=== PATIENT | female | born 1980 | race Caucasian/White ===

== ENCOUNTER → 2017-05-25 | Outpatient (CLI) | payer OTHER ==
[~2017-05-25] MED LIST: ACET325 PO; ALBU90OI INH; Amoxicillin500 M1 PO; BCP'S; BUSP10 PO; CEPH500 PO; CIPR500 PO; CODACE30 PO; DEXT30SU PO; DIPH50 PO; Esgic Tablet1 EACH PO; GABA400 PO; HEARTBURN RELI150 M1 PO; IBUP800 PO; LOPE2C PO; ONDA4ODT MM; OXYACE5T PO; PHENA200 PO; PROM25 PO; Prilosec Otc20 MG PO; RXPHEN200 PO; TRAM50 PO; Valium5 MG PO; Verotin-Gr Cap1 EACH PO
== END | disposition home or self-care (01) ==
LOC: LAB EV 12:43
DX: N39.0 Urinary tract infection, site not specified (principal)
CPT/HCPCS: 87077; 87086; 87186

== ENCOUNTER 2017-06-06 12:48 | Emergency (ER) | payer OTHER ==
[~2017-06-06] VITALS: Ht 162.6 cm; Wt 61.2 kg
[~2017-06-06 12:48] MED LIST changes: -Esgic Tablet1 EACH PO; -GABA400 PO; -ONDA4ODT MM
[2017-06-06] MEDS ORDERED: GABA400 PO (13:56)
[2017-06-06] MEDS ORDERED: Esgic Tablet1 EACH PO (15:13)
[2017-06-06] MEDS ORDERED: ONDA4ODT MM (15:13)
== END 2017-06-06 15:18 | disposition home or self-care (01) ==
LOC: ER 12:48
DX: R51 Headache (principal); F17.210 Nicotine dependence, cigarettes, uncomplicated; Z88.2 Allergy status to sulfonamides; Z79.899 Other long term (current) drug therapy
CPT/HCPCS: 96372; 99283; J0780; J1200; J1885

== ENCOUNTER 2018-10-10 01:16 | Emergency (ER) | payer OTHER ==
[~2018-10-10] VITALS: Ht 165.1 cm; Wt 56.7 kg
[~2018-10-10 01:16] MED LIST changes: +Esgic Tablet1 EACH PO; +GABA400 PO; +ONDA4ODT MM
[2018-10-10] MEDS ORDERED: Cleocin HCl150 MG PO (01:47)
== END 2018-10-10 02:08 | disposition home or self-care (01) ==
LOC: ER 01:16
DX: K02.9 Dental caries, unspecified (principal); K03.81 Cracked tooth; Z88.2 Allergy status to sulfonamides; Z79.899 Other long term (current) drug therapy; F17.210 Nicotine dependence, cigarettes, uncomplicated
CPT/HCPCS: 96372; 99282-25; J1885

== ENCOUNTER 2018-11-19 17:26 | Emergency (ER) | payer OTHER ==
[~2018-11-19] VITALS: Ht 162.6 cm; Wt 54.4 kg
[~2018-11-19 17:26] MED LIST changes: +Cleocin HCl150 MG PO
== END 2018-11-19 19:56 | disposition left against medical advice (07) ==
LOC: ER 17:26
DX: M54.5 Low back pain (principal); Z53.20 Procedure and treatment not carried out because of patient's decision for unspecified reasons
CPT/HCPCS: 99282

== ENCOUNTER 2018-11-26 13:44 | Emergency (ER) | payer OTHER ==
[~2018-11-26] VITALS: Ht 162.6 cm; Wt 59.0 kg
[2018-11-26] MEDS ORDERED: Mupirocin22 GM TOP (15:34)
[2018-11-26] MEDS ORDERED: NAPR550 PO (15:34)
[2018-11-26] MEDS ORDERED: Robaxin-750750 MG PO (15:34)
== END 2018-11-26 15:40 | disposition home or self-care (01) ==
LOC: ER 13:44
DX: S39.012A Strain of muscle, fascia and tendon of lower back, initial encounter (principal); M62.838 Other muscle spasm; W11.XXXA Fall on and from ladder, initial encounter; Z88.2 Allergy status to sulfonamides; Z79.899 Other long term (current) drug therapy; F17.210 Nicotine dependence, cigarettes, uncomplicated
CPT/HCPCS: 72070; 72100; 96372; 99283-25; A9270-GY; J1885

== ENCOUNTER 2019-06-23 19:49 | Emergency (ER) | payer OTHER ==
[~2019-06-23] VITALS: Ht 162.6 cm; Wt 55.3 kg
[~2019-06-23 19:49] MED LIST changes: +Mupirocin22 GM TOP; +NAPR550 PO; +Robaxin-750750 MG PO
[2019-06-23 20:37] LABS: BASOPHILS ABSOLUTE AUTO 0.04 K/mm3 (0.00-0.23); BASOPHILS PERCENT AUTO 0 % (0-2); EOSINOPHILS ABSOLUTE AUTO 0.04 K/mm3 (0.00-0.68); EOSINOPHILS PERCENT AUTO 0 % (0-6); Hematocrit 37.1 % (33.0-51.0); Hemoglobin 12.1 g/dL (11.5-16.0); IMMATURE GRAN ABSOLUTE AUTO 0.04 K/mm3 (0.00-0.10); IMMATURE GRAN PERCENT AUTO 0 % (0-1); LYMPHOCYTES ABSOLUTE AUTO 0.85 K/mm3 (0.84-5.20); LYMPHOCYTES PERCENT AUTO 6 % (21-46); MONOCYTES ABSOLUTE AUTO 0.57 K/mm3 (0.16-1.47); MONOCYTES PERCENT AUTO 4 % (4-13); Mean Corpuscular HGB 28.5 pg (26.0-34.0); Mean Corpuscular HGB Conc 32.6 g/dL (31.5-36.5); Mean Corpuscular Volume 88 fL (80-100); NEUTROPHILS ABSOLUTE AUTO 12.17 K/mm3 (1.96-9.15); NEUTROPHILS PERCENT AUTO 89 % (41-73); Platelet Count 253 K/mm3 (150-400); RDW Coefficient Variation 12.2 % (11.7-14.2); RDW Standard Deviation 39.3 fL (35.1-46.3); Red Blood Cell Count 4.24 M/mm3 (3.80-5.20); White Blood Cell Count 13.71 K/mm3 (4.00-11.30)
[2019-06-23 20:57] LABS: Alanine Aminotransfer (ALT/SGP 15 U/L (12-78); Albumin, Blood 3.7 g/dL (3.4-5.0); Albumin/Globulin Ratio 1.1 (0.8-1.8); Alk Phos 67 U/L (50-136); Anion Gap 5 mmol/L (6-16); Aspartate Aminotrans (AST/SGOT 15 U/L (12-37); Bilirubin, Total 0.4 mg/dL (0.1-1.0); Blood Urea Nitrogen 11 mg/dL (8-24); CO2, Blood 26 mmol/L (21-32); Calcium, Blood 8.3 mg/dL (8.5-10.1); Chloride, Blood 105 mmol/L (98-108); Creatinine, Blood 0.78 mg/dL (0.40-1.00); Globulin, Blood 3.3 g/dL (2.2-4.0); Glomerular Filtration Rate >60 (60-); Glucose, Blood 88 mg/dL (70-99); Potassium, Blood 3.7 mmol/L (3.5-5.5); Sodium, Blood 136 mmol/L (136-145); Troponin I <0.015 ng/mL (0.000-0.040)
[2019-06-23 21:15] LABS: Source, Urine Voided
[2019-06-23 21:18] LABS: Bilirubin, Urine Neg (Neg); Blood, Urine 4+ (Neg); Glucose Qualitative, Urine Neg (Neg); Ketones, Urine Neg (Neg); Leukocyte Esterase, Urine 3+ (Neg); Nitrite, Urine Pos (Neg); Protein, Urine Neg (Neg); Urobilinogen, Urine NORM (Normal)
[2019-06-23 21:24] LABS: Appearance, Urine Clear (Clear); Color, Urine Yellow (P-Yellow)
[2019-06-23 21:25] LABS: Red Blood Cells, Urine 0-2 /hpf (0-2); Squamous Epithelial Cells Mod /hpf (Few)
[2019-06-23 21:26] LABS: Bacteria Many /hpf
[2019-06-23] MEDS ORDERED: IBUP600 PO (21:32)
[2019-06-23] MEDS ORDERED: CEPH500 PO (21:32)
== END 2019-06-23 22:42 | disposition home or self-care (01) ==
LOC: ER 19:49
PROVIDERS: Emergency Medicine
DX: R07.89 Other chest pain (principal); F41.9 Anxiety disorder, unspecified; F17.210 Nicotine dependence, cigarettes, uncomplicated; Z88.2 Allergy status to sulfonamides; Z79.899 Other long term (current) drug therapy
CPT/HCPCS: 36415; 71045; 80053; 81001; 84484; 85025; 87077; 87086; 87147; 87186; 93005; 93010; 99285-25; A9270-GY

== ENCOUNTER 2019-07-17 14:24 | Emergency (ER) | payer OTHER ==
[~2019-07-17] VITALS: Ht 162.6 cm; Wt 54.4 kg
[~2019-07-17 14:24] MED LIST changes: +IBUP600 PO
[2019-07-17 15:32] LABS: BASOPHILS ABSOLUTE AUTO 0.02 K/mm3 (0.00-0.23); BASOPHILS PERCENT AUTO 0 % (0-2); EOSINOPHILS PERCENT AUTO 0 % (0-6); Hematocrit 43.8 % (33.0-51.0); Hemoglobin 14.5 g/dL (11.5-16.0); IMMATURE GRAN ABSOLUTE AUTO 0.08 K/mm3 (0.00-0.10); IMMATURE GRAN PERCENT AUTO 1 % (0-1); LYMPHOCYTES ABSOLUTE AUTO 1.09 K/mm3 (0.84-5.20); LYMPHOCYTES PERCENT AUTO 9 % (21-46); MONOCYTES ABSOLUTE AUTO 0.35 K/mm3 (0.16-1.47); MONOCYTES PERCENT AUTO 3 % (4-13); Mean Corpuscular HGB 27.8 pg (26.0-34.0); Mean Corpuscular HGB Conc 33.1 g/dL (31.5-36.5); Mean Corpuscular Volume 84 fL (80-100); Mean Platelet Volume 8.5 fL (9.1-12.4); NEUTROPHILS ABSOLUTE AUTO 10.84 K/mm3 (1.96-9.15); NEUTROPHILS PERCENT AUTO 88 % (41-73); Platelet Count 468 K/mm3 (150-400); RDW Coefficient Variation 12.7 % (11.7-14.2); RDW Standard Deviation 38.9 fL (35.1-46.3); Red Blood Cell Count 5.21 M/mm3 (3.80-5.20); White Blood Cell Count 12.38 K/mm3 (4.00-11.30)
[2019-07-17 15:54] LABS: Alanine Aminotransfer (ALT/SGP 21 U/L (12-78); Albumin, Blood 4.2 g/dL (3.4-5.0); Albumin/Globulin Ratio 0.9 (0.8-1.8); Alk Phos 92 U/L (50-136); Anion Gap 13 mmol/L (6-16); Aspartate Aminotrans (AST/SGOT 18 U/L (12-37); Bilirubin, Total 0.5 mg/dL (0.1-1.0); Blood Urea Nitrogen 21 mg/dL (8-24); Bun/Creatinine Ratio 21.8 (12.0-20.0); CO2, Blood 20 mmol/L (21-32); Calcium, Blood 10.2 mg/dL (8.5-10.1); Chloride, Blood 104 mmol/L (98-108); Creatinine, Blood 0.96 mg/dL (0.40-1.00); Globulin, Blood 4.9 g/dL (2.2-4.0); Glomerular Filtration Rate >60 (60-); Glucose, Blood 120 mg/dL (70-99); Potassium, Blood 4.2 mmol/L (3.5-5.5); Sodium, Blood 137 mmol/L (136-145); Total Protein, Blood 9.1 g/dL (6.4-8.2)
[2019-07-17 15:57] LABS: Ethanol (Alcohol), Blood, Med <3 mg/dL
[2019-07-17] MEDS ORDERED: ONDA4ODT MM (16:23)
[2019-07-17] MEDS ORDERED: DICY20 PO (16:23)
== END 2019-07-17 17:04 | disposition home or self-care (01) ==
LOC: ER 14:24
PROVIDERS: Emergency Medicine
DX: K52.9 Noninfective gastroenteritis and colitis, unspecified (principal); F41.9 Anxiety disorder, unspecified; F17.200 Nicotine dependence, unspecified, uncomplicated; Z88.2 Allergy status to sulfonamides; Z79.899 Other long term (current) drug therapy
CPT/HCPCS: 36415; 74022; 80053; 83690; 85025; 96361; 96374; 96375; 99284-25; G0480; J1200; J1630; J7030

== ENCOUNTER → 2021-09-16 | Outpatient (CLI) | payer OTHER ==
[~2021-09-16] MED LIST changes: +DICY20 PO
== END | disposition home or self-care (01) ==
LOC: LAB 19:47 → LAB SHORT 19:47
DX: N39.0 Urinary tract infection, site not specified (principal)
CPT/HCPCS: 87077; 87086; 87186

== ENCOUNTER → 2023-10-27 | Outpatient (CLI) | payer OTHER ==
[~2023-10-27] MED LIST changes: +Flagyl500 MG PO; +NAPROXEN250 M1 PO
== END ==
LOC: LAB SHORT 15:04 → LAB 15:04
DX: R30.0 Dysuria (principal)
CPT/HCPCS: 87086

== ENCOUNTER 2023-12-13 21:22 | Emergency (ER) | payer OTHER ==
[~2023-12-13] VITALS: Ht 162.6 cm; Wt 63.5 kg
[2023-12-13 22:23] VITALS: BP 115/81
== END 2023-12-14 01:33 | disposition home or self-care (01) ==
LOC: ER 21:22
DX: Z76.0 Encounter for issue of repeat prescription (principal); F17.210 Nicotine dependence, cigarettes, uncomplicated; Z79.899 Other long term (current) drug therapy; Z88.2 Allergy status to sulfonamides
CPT/HCPCS: 99281

== ENCOUNTER 2024-03-17 18:55 | Emergency (ER) | payer OTHER ==
[~2024-03-17] VITALS: Ht 162.6 cm; Wt 65.8 kg
[2024-03-17 18:58] VITALS: BP 117/82
[2024-03-17] MEDS ORDERED: Methadone HCL 10 MG TAB PO ONE (19:15)
== END 2024-03-17 19:36 | disposition home or self-care (01) ==
LOC: ER 18:55
DX: Z76.0 Encounter for issue of repeat prescription (principal); F17.200 Nicotine dependence, unspecified, uncomplicated; Z79.899 Other long term (current) drug therapy; Z88.2 Allergy status to sulfonamides
CPT/HCPCS: 99281; A9270

== ENCOUNTER 2024-03-18 14:18 | Emergency (ER) | payer OTHER ==
[~2024-03-18] VITALS: Ht 162.6 cm; Wt 63.5 kg
[2024-03-18 14:43] VITALS: BP 112/79
[2024-03-18] MEDS ORDERED: Methadone HCL 10 MG TAB PO ONE (14:45)
== END 2024-03-18 14:57 ==
LOC: ER 14:18
DX: Z76.89 Persons encountering health services in other specified circumstances (principal); F11.20 Opioid dependence, uncomplicated; F17.210 Nicotine dependence, cigarettes, uncomplicated; Z88.2 Allergy status to sulfonamides; Z79.899 Other long term (current) drug therapy; Z59.89 Other problems related to housing and economic circumstances
CPT/HCPCS: 99281; A9270

== ENCOUNTER 2024-04-03 12:31 | Emergency (ER) | payer OTHER ==
[~2024-04-03] VITALS: Ht 162.6 cm; Wt 63.5 kg
[2024-04-03 12:43] VITALS: BP 117/85
[2024-04-03] MEDS ORDERED: Methadone HCL 10 MG TAB PO ONE (14:15)
== END 2024-04-03 14:24 | disposition home or self-care (01) ==
LOC: ER 12:31
DX: Z76.89 Persons encountering health services in other specified circumstances (principal); F19.90 Other psychoactive substance use, unspecified, uncomplicated; F41.9 Anxiety disorder, unspecified; F17.200 Nicotine dependence, unspecified, uncomplicated; Z88.2 Allergy status to sulfonamides; Z79.899 Other long term (current) drug therapy
CPT/HCPCS: 99281; A9270

== ENCOUNTER 2024-05-14 17:17 | Emergency (ER) | payer OTHER ==
[~2024-05-14] VITALS: Ht 162.6 cm; Wt 81.7 kg
[2024-05-14 17:50] VITALS: BP 125/83
[2024-05-14] MEDS ORDERED: Methadone HCL 10 MG TAB PO ONE (17:55)
== END 2024-05-14 18:30 | disposition home or self-care (01) ==
LOC: ER 17:17
DX: F11.90 Opioid use, unspecified, uncomplicated (principal); Z76.0 Encounter for issue of repeat prescription
CPT/HCPCS: 99281; A9270

== ENCOUNTER 2024-05-29 14:00 | Emergency (ER) | payer OTHER ==
[~2024-05-29] VITALS: Ht 162.6 cm; Wt 63.5 kg
[2024-05-29 14:11] VITALS: BP 128/88
[2024-05-29] MEDS ORDERED: Methadone HCL 10 MG TAB PO ONE (15:05)
== END 2024-05-29 15:40 | disposition home or self-care (01) ==
LOC: ER 14:00
DX: Z76.89 Persons encountering health services in other specified circumstances (principal); F11.21 Opioid dependence, in remission; F17.200 Nicotine dependence, unspecified, uncomplicated; Z88.2 Allergy status to sulfonamides; Z79.899 Other long term (current) drug therapy
CPT/HCPCS: 99281; A9270

== ENCOUNTER 2024-06-11 15:48 | Emergency (ER) | payer OTHER ==
[~2024-06-11] VITALS: Ht 162.6 cm; Wt 63.5 kg
[2024-06-11] MEDS ORDERED: Methadone HCL 10 MG TAB PO ONE (16:25)
[2024-06-11 16:26] VITALS: BP 113/89
== END 2024-06-11 17:39 | disposition home or self-care (01) ==
LOC: ER 15:48
DX: Z76.89 Persons encountering health services in other specified circumstances (principal); F17.210 Nicotine dependence, cigarettes, uncomplicated; Z13.220 Encounter for screening for lipoid disorders; M25.541 Pain in joints of right hand; M25.542 Pain in joints of left hand; F11.20 Opioid dependence, uncomplicated; N91.2 Amenorrhea, unspecified; Z88.2 Allergy status to sulfonamides; Z79.899 Other long term (current) drug therapy
CPT/HCPCS: 36415; 80053; 80061; 80074; 84443; 84702; 85025; 85651; 86140; 86480; 86592; 87522; 99281; A9270

== ENCOUNTER 2024-09-27 15:11 | Emergency (ER) | payer OTHER ==
[~2024-09-27] VITALS: Ht 162.6 cm; Wt 63.5 kg
[~2024-09-27 15:11] MED LIST changes: +METH40 PO
[2024-09-27 15:44] VITALS: BP 134/90
== END 2024-09-27 16:59 | disposition home or self-care (01) ==
LOC: ER 15:11
DX: Z76.0 Encounter for issue of repeat prescription (principal); F17.200 Nicotine dependence, unspecified, uncomplicated; Z88.2 Allergy status to sulfonamides; Z79.899 Other long term (current) drug therapy
CPT/HCPCS: 99281; A9270

== ENCOUNTER 2024-11-19 12:02 | Emergency (ER) | payer OTHER ==
[~2024-11-19] VITALS: Ht 162.6 cm; Wt 63.5 kg
[2024-11-19 12:40] VITALS: BP 132/82
== END 2024-11-19 12:48 | disposition home or self-care (01) ==
LOC: ER 12:02
DX: Z76.0 Encounter for issue of repeat prescription (principal); F17.210 Nicotine dependence, cigarettes, uncomplicated; Z88.2 Allergy status to sulfonamides; Z79.899 Other long term (current) drug therapy
CPT/HCPCS: 99281; A9270

== ENCOUNTER 2024-12-30 10:31 | Emergency (ER) | payer OTHER ==
[~2024-12-30] VITALS: Ht 162.6 cm; Wt 68.0 kg
[2024-12-30 10:44] VITALS: BP 120/73
== END 2024-12-30 12:18 | disposition home or self-care (01) ==
LOC: ER 10:31
DX: Z76.89 Persons encountering health services in other specified circumstances (principal); F11.20 Opioid dependence, uncomplicated; F17.200 Nicotine dependence, unspecified, uncomplicated; Z88.2 Allergy status to sulfonamides
CPT/HCPCS: 99281; A9270

== ENCOUNTER 2025-01-10 17:10 | Emergency (ER) | payer OTHER ==
[~2025-01-10] VITALS: Ht 162.6 cm; Wt 68.0 kg
[2025-01-10 17:27] VITALS: BP 124/78
== END 2025-01-10 18:08 | disposition home or self-care (01) ==
LOC: ER 17:10
DX: Z76.0 Encounter for issue of repeat prescription (principal); F11.20 Opioid dependence, uncomplicated
CPT/HCPCS: 99281; A9270